=== PATIENT | female | born 1970 | race Two or more races ===

== ENCOUNTER 2024-10-21 22:54 | Inpatient (IN) | payer BC ==
[~2024-10-21] VITALS: Ht 154.9 cm; Wt 65.9 kg
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
[2024-10-21] MEDS: ACETAMINOPHEN 325 MG TAB PO ONE (23:57)
[2024-10-21 23:59] LABS: Basophils # (auto) 0.1 10 ^3/uL (0-0.2); Basophils % (auto) 1.1 % (0.0-2.0); Eosinophils # (auto) 0.1 10 ^3/uL (0-0.8); Eosinophils % (auto) 1.3 % (0.0-7.0); Hemoglobin 14.1 g/dL (12.2-16.2); Lymphocytes # (auto) 4.5 10 ^3/uL (0.4-5.4); Lymphocytes % (auto) 44.4 % (10.0-50.0); Mean Corpuscular Hemoglobin 30.4 pg (28.0-32.0); Mean Corpuscular Hgb Conc. 34.5 g/dL (32.0-36.0); Monocytes # (auto) 0.6 10 ^3/uL (0-1.3); Monocytes % (auto) 5.6 % (0.0-12.0); Neutrophils # (auto) 4.9 10 ^3/uL (1.6-8.6); Neutrophils % (auto) 47.6 % (37.0-80.0); Platelet Count (auto) 278 10^3/uL (140-450); Red Blood Cells 4.66 10^6/uL (4.0-5.20); Red Cell Distribution Width 12.8 % (11.8-14.3); White Blood Cell 10.2 10^3/uL (4.4-10.8)
[2024-10-22] VITALS (7 sets, daily range): BP systolic 120–130; BP diastolic 71–81; PULSE 57–72; RESP 16–18; TEMP 97.5–98; O2SAT 93–96
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
[2024-10-22 00:14] LABS: INR 0.96 (0.9-1.15); Partial Thromboplastin Time 26.5 SEC (24.5-34.5); Prothrombin Time 10.2 sec (9.3-11.8)
[2024-10-22 00:19] LABS: Albumin 4.7 g/dL (3.2-4.8); Alkaline Phosphatase 88 U/L (46-116); Anion Gap 8 (5-15); Aspartate Aminotransferase 26 U/L (13-40); BUN/Creatinine Ratio 27.5 (10.0-20.0); Bilirubin, Total 0.4 mg/dL (0.2-1.0); Blood Urea Nitrogen 19 mg/dL (9-23); Calcium 10.1 mg/dL (8.7-10.4); Carbon Dioxide 25 mmol/L (20-31); Glucose 102 mg/dL (74-106); Potassium 3.9 mmol/L (3.5-5.1); Sodium 143 mmol/L (136-145); Total Protein 7.1 g/dL (5.7-8.2)
[2024-10-22 00:25] LABS: Alanine Aminotransferase 44 U/L (7-40); Chloride 110 mmol/L (98-107)
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
[2024-10-22] MEDS ORDERED: NITROGLYCERIN 0.4 MG SL TAB SL PRN (02:15)
[2024-10-22] MEDS ORDERED: ACETAMINOPHEN 325 MG TAB PO PRN (02:15)
[2024-10-22] MEDS ORDERED: MORPHINE SULFATE INJ 2 MG/ml SYRG IV PRN ×2 (02:15)
[2024-10-22] MEDS ORDERED: HYDROcodone-ACET 5/325MG TAB PO PRN (02:15)
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
[2024-10-22] MEDS: KETOROLAC TROMETH 30 MG/ML 1ML VIAL IV ONE ×2 (02:52→11:15)
[2024-10-22 04:25] LABS: Basophils # (auto) 0.1 10 ^3/uL (0-0.2); Eosinophils # (auto) 0.1 10 ^3/uL (0-0.8); Eosinophils % (auto) 1.3 % (0.0-7.0); Hematocrit 40.9 % (36.0-46.0); Hemoglobin 14.1 g/dL (12.2-16.2); Lymphocytes # (auto) 4.3 10 ^3/uL (0.4-5.4); Mean Corpuscular Hemoglobin 30.3 pg (28.0-32.0); Mean Corpuscular Hgb Conc. 34.5 g/dL (32.0-36.0); Monocytes # (auto) 0.6 10 ^3/uL (0-1.3); Monocytes % (auto) 5.7 % (0.0-12.0); Neutrophils # (auto) 4.7 10 ^3/uL (1.6-8.6); Nucleated Red Blood Cells % 0.1 %; Platelet Count (auto) 265 10^3/uL (140-450); Red Blood Cells 4.65 10^6/uL (4.0-5.20); Red Cell Distribution Width 12.8 % (11.8-14.3); White Blood Cell 9.7 10^3/uL (4.4-10.8)
--- NOTE | 2024-10-22 04:29 | ECG ---
[facility] Test Date: 2024-10-22 Test Time: 03:37:06 Pat Name: TATIANA MCKEON Department: ED Room: 0237T Gender: F Final Canoe Inspector: casimiro : 1970 Requested By: JOHN TRONCOSO Order Number: [id number] Reading MD: Shahram Dubon Measurements Intervals [place] Rate: 62 P: 44 MT: 168 QRS: -5 QRSD: 112 T: 80 QT: 442 QTc: 449 Interpretive Statements Sinus rhythm Low voltage, precordial leads Consider anterior infarct Electronically Signed On 10-24-2024 21:18:39 PDT by Shahram Dubon Please click the below link to view image of tracing.
[2024-10-22 04:37] LABS: Albumin 4.3 g/dL (3.2-4.8); Alkaline Phosphatase 80 U/L (46-116); Anion Gap 8 (5-15); Aspartate Aminotransferase 29 U/L (13-40); BUN/Creatinine Ratio 27.6 (10.0-20.0); Bilirubin, Total 0.3 mg/dL (0.2-1.0); Blood Urea Nitrogen 16 mg/dL (9-23); Carbon Dioxide 23 mmol/L (20-31); Glucose 100 mg/dL (74-106); Sodium 142 mmol/L (136-145); Total Protein 6.7 g/dL (5.7-8.2)
[2024-10-22 04:40] LABS: Alanine Aminotransferase 42 U/L (7-40); Chloride 111 mmol/L (98-107); Potassium 3.4 mmol/L (3.5-5.1)
--- NOTE | 2024-10-22 06:13 | ECG ---
[facility] Test Date: 2024-10-22 Test Time: 04:51:39 Pat Name: TATIANA MCKEON Department: ED Room: 0237T Gender: F Accounting Coordinator: casimiro : 1970 Requested By: JOHN TRONCOSO Order Number: [id number] Reading MD: Shahram Dubon Measurements Intervals [place] Rate: 61 P: 49 DE: 167 QRS: -24 QRSD: 113 T: 88 QT: 439 QTc: 443 Interpretive Statements Sinus rhythm Borderline intraventricular conduction delay Electronically Signed On 10-24-2024 21:18:29 PDT by Shahram Dubon Please click the below link to view image of tracing.
[2024-10-22] MEDS: POTASSIUM CHL 10 Meq TABLET PO ONE (06:17)
--- NOTE | 2024-10-22 06:18 | ECG ---
[facility] Test Date: 2024-10-21 Test Time: 22:57:51 Pat Name: TATIANA MCKEON Department: ED Room: 0237T Gender: F Data Reduction Technician: casimiro : 1970 Requested By: JOHN TRONCOSO Order Number: [id number] Reading MD: Shahram Dubon Measurements Intervals [place] Rate: 75 P: 36 IN: 151 QRS: -22 QRSD: 112 T: 29 QT: 368 QTc: 411 Interpretive Statements Sinus rhythm Inferior infarct, old Consider anterior infarct Electronically Signed On 10-24-2024 20:48:47 PDT by Shahram Dubon Please click the below link to view image of tracing.
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
[2024-10-22] MEDS ORDERED: OPTISON 3ml Vial for INJ IV ONE (13:01)
[2024-10-22] MEDS: POTASSIUM CHL 20 Meq TABLET PO ONE (13:15)
[2024-10-22] MEDS: IBUPROFEN 800 MG TAB PO PRN (13:15)
[2024-10-22] MEDS: COLCHICINE 0.6 MG CAP PO ONE (14:18)
--- NOTE | 2024-10-22 15:35 | DVHPN2 ---
Subjective Patient denies any chest pain at this time. Reviewed: Care Plan, H&P, Labs, Medications Changes from previous H/P or p: No Changes General: Per HPI Eyes: No Pain, No Vision change, No Conjunctivae inflammation, No Eyelid inflammation, No Other, No Redness ENT: No Ear pain, No Ear discharge, No Nose pain, No Nose discharge, No Nose congestion, No Mouth pain, No Mouth swelling, No Throat pain, No Throat swelling, No Other Cardiovascular: No Chest Pain, No Palpitations, No Orthopnea, No Paroxysmal Noc. Dyspnea, No Edema, No Lt Headedness, No Other Respiratory: No Cough, No Dry, No Shortness of breath, No SOB with excertion, No Wheezing, No Hemoptysis, No Pleuritic Pain, No Sputum, No Other Gastrointestinal: No Nausea, No Vomiting, No Abdominal Pain, No Diarrhea, No Constipation, No Melena, No Hematochezia, No Other Genitourinary: No Dysuria, No Frequency, No Incontinence, No Hematuria, No Retention, No Other Musculoskeletal: No other, No neck pain, No shoulder pain, No arm pain, No back pain, No hand pain, No leg pain, No foot pain Skin: No Rash, No Lesions, No Jaundice, No Bruising, No Other Objective Vitals Vital Signs Date Time Temp Pulse Resp B/P (MAP) Pulse Ox O2 Delivery O2 Flow Rate FiO2 10/22/24 11:19 Room Air* 0 21 10/22/24 09:00 97.5 65 18 120/75 (90) 96 97.5 General Appearance: Alert, Oriented X3, Cooperative, No acute distress HEENT: Atraumatic, PERRLA Cardiovascular: Normal S1, Normal S2 Abdomen: Normal bowel sounds, No tenderness, No hepatospenomegaly Musculoskeletal: Normal sensory function, Normal motor function Neuro: Sensation intact, Cranial nerves 3-12 NL Skin: Dry, Intact Psych/Mental Status: Mental status NL, Mood NL Medications Current Medications Medications Dose Ordered Sig/Anna Route Start Time Stop Time Status Last Admin Dose Admin Acetaminophen 650 mg Q6HP PRN PO 10/22/24 02:15 Acetaminophen/ Hydrocodone Bitart 1 tab Q4HP PRN PO 10/22/24 02:15 Hold Morphine Sulfate 2 mg Q4HPRN PRN IV 10/22/24 02:15 Nitroglycerin 0.4 mg Q5MINP PRN SL 10/22/24 02:15 Morphine Sulfate 2 mg Q30M PRN IV 10/22/24 02:15 Ibuprofen 800 mg Q6HP PRN PO 10/22/24 07:45 10/22/24 13:15 800 MG Laboratory Results Laboratory Tests 10/22/24 04:10 Chemistry Test 10/21/24 23:10 10/22/24 04:10 Albumin 4.7 g/dL (3.2-4.8) 4.3 g/dL (3.2-4.8) Calcium Level 10.1 mg/dL (8.7-10.4) 9.0 mg/dL (8.7-10.4) Magnesium Level 2.0 mg/dL (1.6-2.6) Total Protein 7.1 g/dL (5.7-8.2) 6.7 g/dL (5.7-8.2) Coagulation Test 10/21/24 23:10 Prothrombin Time 10.2 sec (9.3-11.8) Prothrombin Time INR 0.96 (0.9-1.15) Activated Partial Thromboplast Time 26.5 SEC (24.5-34.5) LFT Test 10/21/24 23:10 10/22/24 04:10 Alanine Aminotransferase (ALT) 44 U/L (7-40) H 42 U/L (7-40) H Alkaline Phosphatase 88 U/L (46-116) 80 U/L (46-116) Aspartate Amino Transferase (AST) 26 U/L (13-40) 29 U/L (13-40) Total Bilirubin 0.4 mg/dL (0.2-1.0) 0.3 mg/dL (0.2-1.0) HgA1c, TSH Test 10/22/24 04:10 Thyroid Stimulating Hormone (TSH) 4.34 uIU/mL (0.55-4.78) Labs and/or images reviewed: Labs reviewed by me, Image(s) reviewed by me Assessment/Plan Assessment/Plan Impression: -NSTEMI type 2 secondary to chest trauma. -rule out cardiac contusion, pericarditis , effusion Plan: -echocardiogram pending -troponins downtrending -repeat EKG in a.m. -repeat troponin a.m. -discharge tomorrow if cleared by Cardiology -pain management Total time spent with patient discussing and formulating plan of care: 35 minutes. This medical document was created using an electronic medical record system with [employer] dictation system. Although this document has been carefully reviewed, there may still be some phonetic and typographical errors. These areas are purely typographical due to imperfections of the software programs, and do not reflect any compromise in the patient's medical care. Plan discussed with: Patient, Spouse, Other (RN) Date of Service: October 22, 2024 Billing Provider: SEBAS COOK NP Common Visit Codes: [id number] INP/OBS CARE(HIGH) SEBAS COOK NP October 22, 2024 15:35
[2024-10-22 18:52] LABS: Urine Bacteria FEW /hpf (None Seen); Urine Blood Negative /uL (Negative); Urine Clarity Clear (Clear); Urine Color Colorless (Yellow); Urine Protein, UAD Negative (Negative); Urine Squamous Epithelial Cell FEW /hpf (<5); Urine Urobilinogen Normal (Negative); Urine WBC 3 /HPF (0-5); Urine pH 6.5 (5.0-9.0)
[2024-10-22 18:57] LABS: Amphetamine Screen, Urine Neg (NEGATIVE); Barbiturate Scree,Urine Neg (NEGATIVE); Benzodiazephine Screen, Urine Neg (NEGATIVE); Cannabinoid Screen, Urine Neg (NEGATIVE); Cocaine Screen, Urine Neg (NEGATIVE); Opiate Scree,Urine Neg (NEGATIVE); Phencyclidine Screen, Urine Neg (NEGATIVE)
[2024-10-23 01:00] VITALS: BP 122/66; PULSE 61; RESP 17; TEMP 98.7; O2SAT 95
[2024-10-23 05:00] VITALS: BP 115/74; PULSE 57; RESP 18; TEMP 98.2; O2SAT 96
[2024-10-23 08:00] VITALS: PULSE 55
[2024-10-23 09:20] VITALS: BP 124/71; PULSE 60; RESP 18; TEMP 97.9; O2SAT 96
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
[2024-10-23 11:38] VITALS: BP 124/71; PULSE 60; RESP 18; TEMP 97.9; O2SAT 96
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
== END 2024-10-23 12:10 | disposition home or self-care (01) | DRG 913 ==
LOC: EDSEX 22:54 → ER 22:54 → EDBD 22:54 → EEVIPCON 22:54 → OVERFLOW 10-22 02:08 → TELE-EAST 10-22 08:02
PROVIDERS: ADMIT Nurse Practitioner Acute Care; ATTEND Nurse Practitioner Acute Care
DX: S29.9XXA Unspecified injury of thorax, initial encounter (principal); I21.A1 Myocardial infarction type 2; E87.6 Hypokalemia; M25.562 Pain in left knee; M25.512 Pain in left shoulder; Y93.89 Activity, other specified; Y99.8 Other external cause status; Y92.488 Other paved roadways as the place of occurrence of the external cause; V43.52XA Car driver injured in collision with other type car in traffic accident, initial encounter; Z82.49 Family history of ischemic heart disease and other diseases of the circulatory system; Z87.440 Personal history of urinary (tract) infections; Z90.711 Acquired absence of uterus with remaining cervical stump
CPT/HCPCS: 36415; 71250; 73030; 73130; 73564; 74176; 80053; 80307; 81001; 82550; 83735; 84443; 84484; 85025; 85610; 85730; 86803; 86850; 86900; 86901; 93005; 93306; G0378; Q9956

== ENCOUNTER 2025-05-24 20:16 | Emergency (ER) | payer BC ==
[~2025-05-24] VITALS: Ht 154.9 cm; Wt 94.8 kg
--- NOTE | 2025-05-24 21:08 | ED.PDOC ---
History of Present Illness HPI Comments 54 y/o obese F presents with c/c of left hand laceration. Patient reports on opening a package with a knife when said knife slipped and cut patient as she attempted to grab it mid-fall. No numbness, tingling, or further acute symptoms reported. Chief Complaint: Laceration Time Seen by MD: 21:00 Reviewed Notes: Nurses Notes, Medications, Allergies Allergies: Coded Allergies: NO KNOWN ALLERGIES (Unverified , 10/21/24) Home Meds No Active Prescriptions or Reported Meds Information Source: Patient Mode of Arrival: Ambulatory Severity: Moderate Timing: Hours Duration: Since onset Prehospital treatment: None Past Medical History PAST MEDICAL HISTORY: Denies Surgical History: Denies all surgeries DIP FILLER History: Denies all DIP FILLER Hx Family History Family History: Reviewed,noncontributory to illness Social History Smoker: Non-Smoker Alcohol: Denies ETOH Use Drugs: Denies Drug Use Lives In: Home All Other Systems: Reviewed and Negative (As per HPI) Physical Exam General Appearance: No Apparent Distress, Obese HEENT: Pharynx Normal Neck: Full Range of Motion, Non-Tender Respiratory: Lungs Clear, No Respiratory Distress, Normal Breath Sounds Cardiovascular: No Murmur, Normal Peripheral Pulses, Regular Rate/Rhythm Breast Exam: Deferred Gastrointestinal: Non Tender, Soft Genitalia: Deferred Pelvic: Deferred Rectal: Deferred Extremities: Normal capillary refill, Normal range of motion Musculoskeletal : Apperance: Normal Neurologic: Alert, No Motor Deficits, Normal Affect, Normal Mood, No Sensory Deficits Cerebellar Function: Normal Reflexes: NOT DONE Skin: Dry, Lacerations (left hand palmar side, linear, complex, at 5cm in [facility]), Normal Color, Warm Lymphatic: No Adenopathy Was a procedure done? Was a procedure done?: Yes Sedation Sedation?: No Laceration Repair : Location left hand palmar side Length 5cm Anesthetic: Lidocaine, Without epi Laceration Repair Prep: Saline, Shur-Clens, by Irrigation, Manual Scrub Laceration Repair Wound Comple: layered repair, subcut tissue repair Laceration Repair: Number of sutures (11x 3.0 ethilon), SQ Informed consent obtained: Yes Risks, benefits, and alternati: Yes Differential Dx Considerations may include: laceration, avulsion, neurovascular injuries, among others X-Ray, Labs, Meds, VS Vital Signs Date Time Temp Pulse Resp B/P (MAP) Pulse Ox O2 Delivery O2 Flow Rate FiO2 05/24/25 22:07 98.4 76 19 146/66 (92) 97 98.4 05/24/25 22:07 76 19 97 Room Air 05/24/25 20:18 98.4 108 20 151/123 96 98.4 Current Medications Medications (Trade) Dose Ordered Sig/Anna Route Start Time Stop Time Status Last Admin Oxycodone/ Acetaminophen (Percocet 5/ 325MG Tablet) 1 tab ONCE ONCE PO 05/24/25 21:15 05/24/25 21:16 DC 05/24/25 22:07 Diphtheria/ Tetanus/Acell Pertussis (Boostrix T-Dap) 0.5 ml ONCE ONCE IM 05/24/25 22:45 05/24/25 22:46 DC 05/24/25 22:52 X-Ray, Labs, Meds, VS Comment SEE PROCEDURE NOTE. Advised [id number] Tylenol or Motrin as needed for the pain per labeled dosing instructions. Suture removal within 5-7 days. Advised to follow up urgent care primary care or back in the ER for removal. Advised to monitor for signs and symptoms of infection and uncontrolled bleeding return to the ER as indicated. Pt indicate understanding and agree with discharge plan of care. Time of 1ST Reevaluation: 21:30 Reevaluation 1ST: Unchanged Time of 2ND Reevaluation: 22:35 Reevaluation 2ND: Improved Patient Education/Counseling: Diagnosis, Treatment, Need For Follow Up Family Education/Counseling: Diagnosis, Treatment, Need For Follow Up SEPSIS Sepsis Screen Date sepsis recognized/suspect: May 24, 2025 Time Sepsis recognized/suspect: 2019 Recent Procedure: No On Antibiotic Therapy: No Respiratory Rate >20: No Heart Rate >90: Yes Temp<36 C (96.8 F) or >38.3 C: No SBP <90 or MAP <65 mmHG: No New Acute Mental Status Change: No Is the patient on CPAP, BIPAP,: No Vital Signs Date Time Temp Pulse Resp B/P (MAP) Pulse Ox O2 Delivery O2 Flow Rate FiO2 05/24/25 22:07 98.4 76 19 146/66 (92) 97 98.4 05/24/25 22:07 76 19 97 Room Air 05/24/25 20:18 98.4 108 20 151/123 96 98.4 Medications Medications Dose Ordered Sig/Anna Route Start Time Stop Time Status Last Admin Dose Admin Diphtheria/ Tetanus/Acell Pertussis 0.5 ml ONCE ONCE IM 05/24/25 22:45 05/24/25 22:46 DC 05/24/25 22:52 Oxycodone/ Acetaminophen 1 tab ONCE ONCE PO 05/24/25 21:15 05/24/25 21:16 DC 05/24/25 22:07 Departure 1 Departure Time of Disposition: 22:34 Impression: Primary Impression: Laceration of left hand without complication, excluding fingers Qualified Codes: S61.412A - Laceration without foreign body of left hand, initial encounter Disposition: HOME / SELF CARE / HOMELESS Condition: Stable e-Prescriptions Ibuprofen Micronized (MOTRIN TABLET) 600 Mg Tb 600 MG PO TID PRN for 10 Days, #30 TAB *Black box warning-NSAIDS can increase risk of VT & hypertension, GI irritation, ulceration, bleed, perferation. Do not use post cardiac surgery. Use short duration/lowest effective dose. Prov: TROY JACKSON 05/24/25 Discharged With: Spouse Critical Care Note Critical Care Time?: No Stability Stability form required: No Heart Score Heart Score: Heart Score Response (Comments) Value History N/A 0 EKG N/A 0 Age N/A 0 Risk Factors N/A 0 Troponin N/A 0 Total 0 I personally scribed for ER ([email or web address]) on 05/24/25 at 21:08. Electronically submitted by Ritesh Kidd ([email or web address]). I personally scribed for ER ([email or web address]) on 05/24/25 at 21:37. Electronically submitted by Ritesh Kidd ([email or web address]). ER May 24, 2025 21:08 TROY JACKSON May 24, 2025 22:36
[2025-05-24 22:07] VITALS: BP 146/66; PULSE 76; RESP 19; TEMP 98.4; O2SAT 97
[2025-05-24] MEDS: OXYCODONE W/ ACETAMINOPHEN 5/325MG TABLET PO ONE (22:07)
[2025-05-24] MEDS: TETANUS-DIPTH-ACEL PERTUSSIS 0.5ML SYR Tdap IM ONE (22:52)
[2025-05-24] MEDS ORDERED: IBU600T PO (23:18)
== END 2025-05-24 23:20 | disposition home or self-care (01) ==
LOC: ER 20:16
DX: S61.412A Laceration without foreign body of left hand, initial encounter (principal); W01.0XXA Fall on same level from slipping, tripping and stumbling without subsequent striking against object, initial encounter; Y93.89 Activity, other specified; Y92.89 Other specified places as the place of occurrence of the external cause; Y99.8 Other external cause status
CPT/HCPCS: 12002; 90471; 90715; 99283; A4649